=== PATIENT | male | born 1985 | race Caucasian/White ===

== ENCOUNTER 2017-11-30 13:13 | Emergency (ER) | payer OTHER ==
[2017-11-30 13:18] VITALS: Ht 167.6 cm
[2017-11-30 15:22] VITALS: BP 118/76
== END 2017-11-30 15:22 | disposition home or self-care (01) ==
LOC: ED 13:13
DX: S61.309A Unspecified open wound of unspecified finger with damage to nail, initial encounter (principal); W26.8XXA Contact with other sharp object(s), not elsewhere classified, initial encounter; Y93.89 Activity, other specified; Y92.89 Other specified places as the place of occurrence of the external cause; Y99.8 Other external cause status
CPT/HCPCS: Q0092

== ENCOUNTER 2018-06-10 00:50 | Emergency (ER) | payer MEDICAID ==
[~2018-06-10] VITALS: Ht 177.8 cm; Wt 129.7 kg
[2018-06-10 00:54] VITALS: Ht 177.8 cm; Wt 129.7 kg
[2018-06-10 01:49] LABS: BASOPHIL % 0.3 % (0-2); PLATELET COUNT 301 x10^3mcL (130-400); RED CELL DISTRIBUTION WIDTH 14.4 % (11.5-14.5)
[2018-06-10 01:57] LABS: CALCIUM 8.7 mg/dL (8.5-10.1); CARBON DIOXIDE 26.6 mmol/L (21-32); CHLORIDE SERUM 103 mmol/L (98-107); GFR1 > 60 mL/min; GLUCOSE SERUM 108 mg/dL (74-106); SODIUM SERUM 138 mmol/L (136-145)
[2018-06-10 02:02] LABS: ALBUMIN 3.9 g/dL (3.4-5.0); ALKALINE PHOSPHATASE 102 U/L (46-116); ALT/SGPT 39 U/L (16-63); AST/SGOT 22 U/L (15-37); BILIRUBIN TOTAL 0.34 mg/dL (0.20-1.00); TOTAL PROTEIN, SERUM 7.8 g/dL (6.4-8.2)
[2018-06-10 02:35] VITALS: BP 127/74
== END 2018-06-10 02:35 | disposition home or self-care (01) ==
LOC: ED 00:50
PROVIDERS: Emergency Medicine
DX: R07.89 Other chest pain (principal)
CPT/HCPCS: 36415; Q0092